=== PATIENT | male | born 1980 | race African-American/Black ===

== ENCOUNTER 2021-11-19 11:21 | Inpatient (IN) | payer OTHER ==
[2021-11-19] MEDS ORDERED: METHOCARBAMOL 500 MG TABLET PO PRN (12:32)
[2021-11-19] MEDS ORDERED: MAG HYDROX/AL HYDROX/SIMETH 30 ML UNIT-DOSE CUP PO PRN (12:32)
[2021-11-19] MEDS ORDERED: ACETAMINOPHEN 325 MG TABLET (FP) PO PRN ×2 (12:32)
[2021-11-19] MEDS ORDERED: NICOTINE 10 MG CARTRIDGE (INHALER) IH PRN (12:32)
[2021-11-19] MEDS ORDERED: IBUPROFEN 400 MG TABLET (FP) PO PRN (12:32)
[2021-11-19] MEDS ORDERED: DICYCLOMINE HCL 10 MG CAPSULE PO PRN (12:32)
[2021-11-19] MEDS ORDERED: LOPERAMIDE HCL 2 MG CAPSULE PO PRN (12:32)
[2021-11-19] MEDS ORDERED: MAGNESIUM CITRATE 300 ML BOTTLE PO PRN (12:32)
[2021-11-19] MEDS ORDERED: MAGNESIUM HYDROX 2400MG/30ML ORAL SUSPENSION 30 ML CUP PO PRN (12:32)
[2021-11-19] MEDS ORDERED: ONDANSETRON *ODT* 4 MG TABLET SL PRN (12:32)
[2021-11-19] MEDS ORDERED: BISMUTH SUBSALICYLATE 524 MG/30 ML PO PRN (12:32)
[2021-11-19] MEDS ORDERED: BENZOCAINE/MENTHOL (CHLORASEPTIC ) LOZENGE MM PRN (12:32)
[2021-11-19] MEDS ORDERED: chlordiazePOXIDE HCL 25 MG CAPSULE PO PRN (12:32)
[2021-11-19 13:01] VITALS: BMI 26.6
[2021-11-19] MEDS: PRENATAL VITAMINS W/ FOLIC ACID TABLET (FP) PO SCH (14:54)
[2021-11-19] MEDS: hydrOXYzine PAMOATE 25 MG CAPSULE (FP) PO SCH ×3 (14:54→22:37)
[2021-11-19] MEDS: MELATONIN 5 MG TABLETS PO SCH (22:37)
[2021-11-19] MEDS: THIAMINE HCL 100 MG TABLET (FP) PO SCH (22:37)
[2021-11-19] MEDS: chlordiazePOXIDE HCL 25 MG CAPSULE PO SCH (22:40)
[2021-11-20] MEDS: chlordiazePOXIDE HCL 25 MG CAPSULE PO SCH ×4 (06:37→22:04)
[2021-11-20] MEDS: hydrOXYzine PAMOATE 25 MG CAPSULE (FP) PO SCH ×5 (06:37→22:04)
[2021-11-20 09:39] LABS: HEMATOCRIT 39.2 % (35.4-49); HEMOGLOBIN 13.6 GM/dL (11.7-16.9); MCH 34.5 pg (25.7-33.7); MCHC 34.8 g/dl (32.0-35.9); MEAN CELL VOLUME 99.2 fl (80-96); MEAN PLT VOLUME 8.5 fl (7.5-11.1); PLATELET COUNT 203 10^3/uL (134-434); RBC 3.95 M/mm3 (4.00-5.60); RDW 13.5 % (11.9-15.9); WHITE BLOOD COUNT 5.2 K/mm3 (4.0-10.0)
[2021-11-20 09:55] LABS: BLOOD UREA NITROGEN 13.8 mg/dL (7-18); CALCIUM 8.9 mg/dL (8.5-10.1)
[2021-11-20 09:57] LABS: ALBUMIN 4.1 g/dl (3.4-5.0); CREATININE 0.8 mg/dL (0.55-1.3)
[2021-11-20 09:59] LABS: BILIRUBIN,TOTAL 0.5 mg/dL (0.2-1); TOT PROT 7.5 g/dl (6.4-8.2)
[2021-11-20] MEDS: PRENATAL VITAMINS W/ FOLIC ACID TABLET (FP) PO SCH (10:34)
[2021-11-20] MEDS: MELATONIN 5 MG TABLETS PO SCH (22:03)
[2021-11-20] MEDS: THIAMINE HCL 100 MG TABLET (FP) PO SCH (22:04)
[2021-11-20] MEDS: MIRTAZAPINE 15 MG TABLET (FP) PO SCH (22:04)
[2021-11-21] MEDS: chlordiazePOXIDE HCL 25 MG CAPSULE PO SCH ×4 (05:47→22:51)
[2021-11-21] MEDS: hydrOXYzine PAMOATE 25 MG CAPSULE (FP) PO SCH ×5 (05:48→22:51)
[2021-11-21] MEDS: SERTRALINE HCL 50 MG TABLET (FP) PO SCH (10:14)
[2021-11-21] MEDS: PRENATAL VITAMINS W/ FOLIC ACID TABLET (FP) PO SCH (10:14)
[2021-11-21 17:06] LABS: SARS-CoV-2 NAA Not Detected (Not Detected)
[2021-11-21] MEDS: MELATONIN 5 MG TABLETS PO SCH (22:50)
[2021-11-21] MEDS: MIRTAZAPINE 15 MG TABLET (FP) PO SCH (22:50)
[2021-11-21] MEDS: THIAMINE HCL 100 MG TABLET (FP) PO SCH (22:51)
[2021-11-22] MEDS ORDERED: chlordiazePOXIDE HCL 10 MG CAPSULE PO PRN
[2021-11-22] MEDS: chlordiazePOXIDE HCL 10 MG CAPSULE PO SCH ×4 (06:05→22:14)
[2021-11-22] MEDS: hydrOXYzine PAMOATE 25 MG CAPSULE (FP) PO SCH ×5 (06:05→22:14)
[2021-11-22] MEDS: PRENATAL VITAMINS W/ FOLIC ACID TABLET (FP) PO SCH (09:52)
[2021-11-22] MEDS: SERTRALINE HCL 50 MG TABLET (FP) PO SCH (09:52)
[2021-11-22] MEDS: THIAMINE HCL 100 MG TABLET (FP) PO SCH (22:13)
[2021-11-22] MEDS: MIRTAZAPINE 15 MG TABLET (FP) PO SCH (22:14)
[2021-11-22] MEDS: MELATONIN 5 MG TABLETS PO SCH (22:14)
[2021-11-23] MEDS: hydrOXYzine PAMOATE 25 MG CAPSULE (FP) PO SCH ×5 (05:59→22:34)
[2021-11-23] MEDS: chlordiazePOXIDE HCL 10 MG CAPSULE PO SCH ×2 (05:59→17:41)
[2021-11-23] MEDS: SERTRALINE HCL 50 MG TABLET (FP) PO SCH (10:33)
[2021-11-23] MEDS: PRENATAL VITAMINS W/ FOLIC ACID TABLET (FP) PO SCH (10:33)
[2021-11-23] MEDS: THIAMINE HCL 100 MG TABLET (FP) PO SCH (22:34)
[2021-11-23] MEDS: MIRTAZAPINE 15 MG TABLET (FP) PO SCH (22:34)
[2021-11-23] MEDS: MELATONIN 5 MG TABLETS PO SCH (22:34)
[2021-11-24] MEDS ORDERED: chlordiazePOXIDE HCL 10 MG CAPSULE PO ONE (05:00)
[2021-11-24] MEDS: hydrOXYzine PAMOATE 25 MG CAPSULE (FP) PO SCH ×3 (05:27→14:06)
[2021-11-24] MEDS: PRENATAL VITAMINS W/ FOLIC ACID TABLET (FP) PO SCH (10:19)
[2021-11-24] MEDS: SERTRALINE HCL 50 MG TABLET (FP) PO SCH (10:19)
[2021-11-24 12:48] VITALS: BP 116/69; PULSE 69; TEMP 97.3
== END 2021-11-24 14:15 | disposition other institution (70) | DRG 775 ==
LOC: YASAS 11:21 → Y3N 13:21
PROVIDERS: ADMIT Allergy & Immunology; ATTEND Surgery
PROC: HZ2ZZZZ Detoxification Services for Substance Abuse Treatment (ICD-10-PCS; principal; 2021-11-19)
DX: F10.230 Alcohol dependence with withdrawal, uncomplicated (principal); F17.210 Nicotine dependence, cigarettes, uncomplicated; F41.9 Anxiety disorder, unspecified; F32.A Depression, unspecified; F43.10 Post-traumatic stress disorder, unspecified; G47.00 Insomnia, unspecified; Z56.0 Unemployment, unspecified; Z59.00 Homelessness unspecified
CPT/HCPCS: 36415; 80053; 85027; 86780; C9803-CS; U0003; U0005

== ENCOUNTER 2021-11-24 14:35 | Inpatient (IN) | payer OTHER ==
[2021-11-24] MEDS ORDERED: BENZOCAINE/MENTHOL (CHLORASEPTIC ) LOZENGE MM PRN (16:06)
[2021-11-24] MEDS ORDERED: LOPERAMIDE HCL 2 MG CAPSULE PO PRN (16:06)
[2021-11-24] MEDS ORDERED: MAG HYDROX/AL HYDROX/SIMETH 30 ML UNIT-DOSE CUP PO PRN (16:06)
[2021-11-24] MEDS ORDERED: guaiFENesin 200 MG/10 ML 10 ML UNIT-DOSE CUPS PO PRN (16:06)
[2021-11-24] MEDS ORDERED: P-EPHED 60MG/TRIPROLIDI 2.5MG TABLET PO PRN (16:06)
[2021-11-24] MEDS ORDERED: IBUPROFEN 400 MG TABLET (FP) PO PRN (16:06)
[2021-11-24] MEDS ORDERED: NICOTINE 10 MG CARTRIDGE (INHALER) IH PRN (16:06)
[2021-11-24] MEDS ORDERED: MAGNESIUM CITRATE 300 ML BOTTLE PO PRN (16:06)
[2021-11-24] MEDS ORDERED: MAGNESIUM HYDROX 2400MG/30ML ORAL SUSPENSION 30 ML CUP PO PRN (16:06)
[2021-11-24] MEDS ORDERED: ACETAMINOPHEN 325 MG TABLET (FP) PO PRN (16:06)
[2021-11-24] MEDS: NICOTINE 7 MG/24 HOURS TOPICAL PATCH TD SCH (17:35)
[2021-11-24] MEDS: PRENATAL VITAMINS W/ FOLIC ACID TABLET (FP) PO SCH (17:35)
[2021-11-24] MEDS: hydrOXYzine PAMOATE 25 MG CAPSULE (FP) PO SCH ×2 (18:37→21:03)
[2021-11-24] MEDS: MELATONIN 5 MG TABLETS PO SCH (21:03)
[2021-11-24] MEDS: risperiDONE 1 MG TABLET PO SCH (21:03)
[2021-11-24] MEDS: THIAMINE HCL 100 MG TABLET (FP) PO SCH (21:03)
[2021-11-25] MEDS: hydrOXYzine PAMOATE 25 MG CAPSULE (FP) PO SCH ×2 (06:23→10:34)
[2021-11-25] MEDS ORDERED: EMTRICITABINE 200MG/TENOFOVIR 300MG PO SCH (10:00)
[2021-11-25] MEDS ORDERED: MIRTAZAPINE 15 MG TABLET (FP) PO SCH (10:00)
[2021-11-25] MEDS: PRENATAL VITAMINS W/ FOLIC ACID TABLET (FP) PO SCH (10:34)
[2021-11-25] MEDS: NICOTINE 7 MG/24 HOURS TOPICAL PATCH TD SCH (10:34)
[2021-11-25] MEDS: risperiDONE 1 MG TABLET PO SCH ×2 (10:34→21:24)
[2021-11-25] MEDS: SERTRALINE HCL 50 MG TABLET (FP) PO SCH (10:35)
[2021-11-25] MEDS: PATIENT,S OWN MED:EMTRICITABINE 200MG/TENOFOVIR 300MG PO SCH (10:35)
[2021-11-25] MEDS ORDERED: hydrOXYzine PAMOATE 25 MG CAPSULE (FP) PO PRN (11:50)
[2021-11-25] MEDS: THIAMINE HCL 100 MG TABLET (FP) PO SCH (21:25)
[2021-11-25] MEDS: MELATONIN 5 MG TABLETS PO SCH (21:25)
[2021-11-25] MEDS: MIRTAZAPINE 15 MG TABLET (FP) PO SCH (21:25)
[2021-11-26] MEDS: risperiDONE 1 MG TABLET PO SCH ×2 (10:23→21:05)
[2021-11-26] MEDS: PRENATAL VITAMINS W/ FOLIC ACID TABLET (FP) PO SCH (10:23)
[2021-11-26] MEDS: SERTRALINE HCL 50 MG TABLET (FP) PO SCH (10:23)
[2021-11-26] MEDS: NICOTINE 7 MG/24 HOURS TOPICAL PATCH TD SCH (10:23)
[2021-11-26] MEDS: MIRTAZAPINE 15 MG TABLET (FP) PO SCH ×2 (10:24→21:06)
[2021-11-26] MEDS: PATIENT,S OWN MED:EMTRICITABINE 200MG/TENOFOVIR 300MG PO SCH (10:24)
[2021-11-26] MEDS: THIAMINE HCL 100 MG TABLET (FP) PO SCH (21:05)
[2021-11-26] MEDS: MELATONIN 5 MG TABLETS PO SCH (21:05)
[2021-11-27] MEDS: NICOTINE 7 MG/24 HOURS TOPICAL PATCH TD SCH (09:56)
[2021-11-27] MEDS: SERTRALINE HCL 50 MG TABLET (FP) PO SCH (09:56)
[2021-11-27] MEDS: PRENATAL VITAMINS W/ FOLIC ACID TABLET (FP) PO SCH (09:56)
[2021-11-27] MEDS: risperiDONE 1 MG TABLET PO SCH ×2 (09:56→21:09)
[2021-11-27] MEDS: PATIENT,S OWN MED:EMTRICITABINE 200MG/TENOFOVIR 300MG PO SCH (09:56)
[2021-11-27 11:56] LABS: HIV INTERPRETATION NEGATIVE (NEGATIVE)
[2021-11-27] MEDS: MELATONIN 5 MG TABLETS PO SCH (21:09)
[2021-11-27] MEDS: THIAMINE HCL 100 MG TABLET (FP) PO SCH (21:09)
[2021-11-27] MEDS: MIRTAZAPINE 15 MG TABLET (FP) PO SCH (21:09)
[2021-11-28] MEDS: PRENATAL VITAMINS W/ FOLIC ACID TABLET (FP) PO SCH (10:09)
[2021-11-28] MEDS: SERTRALINE HCL 50 MG TABLET (FP) PO SCH (10:09)
[2021-11-28] MEDS: NICOTINE 7 MG/24 HOURS TOPICAL PATCH TD SCH (10:09)
[2021-11-28] MEDS: risperiDONE 1 MG TABLET PO SCH ×2 (10:09→21:47)
[2021-11-28] MEDS: PATIENT,S OWN MED:EMTRICITABINE 200MG/TENOFOVIR 300MG PO SCH (10:09)
[2021-11-28] MEDS: MELATONIN 5 MG TABLETS PO SCH (21:47)
[2021-11-28] MEDS: MIRTAZAPINE 15 MG TABLET (FP) PO SCH (21:47)
[2021-11-28] MEDS: THIAMINE HCL 100 MG TABLET (FP) PO SCH (21:47)
[2021-11-29] MEDS: PATIENT,S OWN MED:EMTRICITABINE 200MG/TENOFOVIR 300MG PO SCH (10:27)
[2021-11-29] MEDS: risperiDONE 1 MG TABLET PO SCH ×2 (10:27→21:28)
[2021-11-29] MEDS: SERTRALINE HCL 50 MG TABLET (FP) PO SCH (10:27)
[2021-11-29] MEDS: NICOTINE 7 MG/24 HOURS TOPICAL PATCH TD SCH (10:28)
[2021-11-29] MEDS: PRENATAL VITAMINS W/ FOLIC ACID TABLET (FP) PO SCH (10:28)
[2021-11-29] MEDS: THIAMINE HCL 100 MG TABLET (FP) PO SCH (21:28)
[2021-11-29] MEDS: MIRTAZAPINE 15 MG TABLET (FP) PO SCH (21:29)
[2021-11-29] MEDS: MELATONIN 5 MG TABLETS PO SCH (21:29)
[2021-11-30] MEDS: PRENATAL VITAMINS W/ FOLIC ACID TABLET (FP) PO SCH (10:00)
[2021-11-30] MEDS: SERTRALINE HCL 50 MG TABLET (FP) PO SCH (10:00)
[2021-11-30] MEDS: PATIENT,S OWN MED:EMTRICITABINE 200MG/TENOFOVIR 300MG PO SCH (10:00)
[2021-11-30] MEDS: NICOTINE 7 MG/24 HOURS TOPICAL PATCH TD SCH (10:00)
[2021-11-30] MEDS: risperiDONE 1 MG TABLET PO SCH ×2 (10:00→21:13)
[2021-11-30] MEDS: MELATONIN 5 MG TABLETS PO SCH (21:13)
[2021-11-30] MEDS: THIAMINE HCL 100 MG TABLET (FP) PO SCH (21:13)
[2021-11-30] MEDS: MIRTAZAPINE 15 MG TABLET (FP) PO SCH (21:13)
[2021-12-01] MEDS: NICOTINE 7 MG/24 HOURS TOPICAL PATCH TD SCH (10:03)
[2021-12-01] MEDS: risperiDONE 1 MG TABLET PO SCH ×2 (10:03→21:34)
[2021-12-01] MEDS: PRENATAL VITAMINS W/ FOLIC ACID TABLET (FP) PO SCH (10:03)
[2021-12-01] MEDS: PATIENT,S OWN MED:EMTRICITABINE 200MG/TENOFOVIR 300MG PO SCH (10:03)
[2021-12-01] MEDS: SERTRALINE HCL 50 MG TABLET (FP) PO SCH (10:03)
[2021-12-01] MEDS: MIRTAZAPINE 15 MG TABLET (FP) PO SCH (21:34)
[2021-12-01] MEDS: THIAMINE HCL 100 MG TABLET (FP) PO SCH (21:34)
[2021-12-01] MEDS: MELATONIN 5 MG TABLETS PO SCH (21:35)
[2021-12-02] MEDS: risperiDONE 1 MG TABLET PO SCH ×2 (09:50→21:23)
[2021-12-02] MEDS: PRENATAL VITAMINS W/ FOLIC ACID TABLET (FP) PO SCH (09:50)
[2021-12-02] MEDS: PATIENT,S OWN MED:EMTRICITABINE 200MG/TENOFOVIR 300MG PO SCH (09:50)
[2021-12-02] MEDS: NICOTINE 7 MG/24 HOURS TOPICAL PATCH TD SCH (09:50)
[2021-12-02] MEDS: SERTRALINE HCL 50 MG TABLET (FP) PO SCH (09:50)
[2021-12-02] MEDS ORDERED: COLLOIDAL OATMEAL 1 BAR EACH TP PRN (09:53)
[2021-12-02] MEDS: VITAMINS A AND D TOPICAL OINTMENT 60 GM TUBE TP SCH ×2 (14:06→19:30)
[2021-12-02] MEDS: MELATONIN 5 MG TABLETS PO SCH (21:22)
[2021-12-02] MEDS: THIAMINE HCL 100 MG TABLET (FP) PO SCH (21:22)
[2021-12-02] MEDS: MIRTAZAPINE 15 MG TABLET (FP) PO SCH (21:22)
[2021-12-03] MEDS: VITAMINS A AND D TOPICAL OINTMENT 60 GM TUBE TP SCH ×4 (02:07→19:57)
[2021-12-03] MEDS: PRENATAL VITAMINS W/ FOLIC ACID TABLET (FP) PO SCH (09:50)
[2021-12-03] MEDS: SERTRALINE HCL 50 MG TABLET (FP) PO SCH (09:50)
[2021-12-03] MEDS: PATIENT,S OWN MED:EMTRICITABINE 200MG/TENOFOVIR 300MG PO SCH (09:50)
[2021-12-03] MEDS: risperiDONE 1 MG TABLET PO SCH ×2 (09:50→21:01)
[2021-12-03] MEDS: NICOTINE 7 MG/24 HOURS TOPICAL PATCH TD SCH (09:51)
[2021-12-03] MEDS: MIRTAZAPINE 15 MG TABLET (FP) PO SCH (21:02)
[2021-12-03] MEDS: THIAMINE HCL 100 MG TABLET (FP) PO SCH (21:02)
[2021-12-03] MEDS: MELATONIN 5 MG TABLETS PO SCH (21:02)
[2021-12-04] MEDS: VITAMINS A AND D TOPICAL OINTMENT 60 GM TUBE TP SCH ×4 (01:52→18:45)
[2021-12-04 09:01] VITALS: PULSE 69
[2021-12-04] MEDS: SERTRALINE HCL 50 MG TABLET (FP) PO SCH (10:40)
[2021-12-04] MEDS: PRENATAL VITAMINS W/ FOLIC ACID TABLET (FP) PO SCH (10:40)
[2021-12-04] MEDS: NICOTINE 7 MG/24 HOURS TOPICAL PATCH TD SCH (10:40)
[2021-12-04] MEDS: PATIENT,S OWN MED:EMTRICITABINE 200MG/TENOFOVIR 300MG PO SCH (10:41)
[2021-12-04] MEDS: risperiDONE 1 MG TABLET PO SCH ×2 (10:41→21:08)
[2021-12-04] MEDS: MIRTAZAPINE 15 MG TABLET (FP) PO SCH (21:08)
[2021-12-04] MEDS: MELATONIN 5 MG TABLETS PO SCH (21:08)
[2021-12-04] MEDS: THIAMINE HCL 100 MG TABLET (FP) PO SCH (21:08)
[2021-12-05] MEDS: VITAMINS A AND D TOPICAL OINTMENT 60 GM TUBE TP SCH ×2 (01:14→06:35)
[2021-12-05 07:09] VITALS: BP 142/78; TEMP 97.9
[2021-12-05] MEDS: SERTRALINE HCL 50 MG TABLET (FP) PO SCH (09:42)
[2021-12-05] MEDS: risperiDONE 1 MG TABLET PO SCH (09:42)
[2021-12-05] MEDS: PRENATAL VITAMINS W/ FOLIC ACID TABLET (FP) PO SCH (09:44)
[2021-12-05] MEDS: PATIENT,S OWN MED:EMTRICITABINE 200MG/TENOFOVIR 300MG PO SCH (09:44)
[2021-12-05] MEDS: NICOTINE 7 MG/24 HOURS TOPICAL PATCH TD SCH (09:44)
== END 2021-12-05 09:56 | disposition home or self-care (01) | DRG 772 ==
LOC: YASAS 14:35 → Y3W 14:36
PROVIDERS: ADMIT Allergy & Immunology; ATTEND Psychiatry & Neurology Pain Medicine
PROC: HZ42ZZZ Group Counseling for Substance Abuse Treatment, Cognitive-Behavioral (ICD-10-PCS; principal; 2021-11-24)
DX: F10.20 Alcohol dependence, uncomplicated (principal); F16.20 Hallucinogen dependence, uncomplicated; F12.20 Cannabis dependence, uncomplicated; F17.210 Nicotine dependence, cigarettes, uncomplicated; F19.24 Other psychoactive substance dependence with psychoactive substance-induced mood disorder; F43.10 Post-traumatic stress disorder, unspecified; F41.8 Other specified anxiety disorders; F32.A Depression, unspecified; L85.8 Other specified epidermal thickening; Z63.4 Disappearance and death of family member; Z56.0 Unemployment, unspecified; Z59.00 Homelessness unspecified; Z91.014 Allergy to mammalian meats
CPT/HCPCS: 36415; 87389; J2794